=== PATIENT | male | born 1945 | race Caucasian/White ===

== ENCOUNTER → 2016-08-26 | Day surgery (SDC) | payer MEDICARE, BC ==
[2015-07-01 01:40] VITALS: BP 88/49
[~2016-08-26] MED LIST: ASPIRIN E.C. 8181 MG; CLOPIDOGREL; DECADRON 4MG TAB4 MG PO; FOLIC ACID1 MG PO; NITROGLYCERIN0.4 M1 SL; ONE-A-DAY MENO1 EACH PO; PROCHLORPERAZIN10 M2; RELION VEN0.09 MG/Ac IH; SIMVASTATIN40 M1 PO
== END ==
LOC: MSO 08:10
DX: Z12.11 Encounter for screening for malignant neoplasm of colon (principal); C34.92 Malignant neoplasm of unspecified part of left bronchus or lung; C79.9 Secondary malignant neoplasm of unspecified site; J44.9 Chronic obstructive pulmonary disease, unspecified; J45.909 Unspecified asthma, uncomplicated; Z87.891 Personal history of nicotine dependence; K62.89 Other specified diseases of anus and rectum; K57.10 Diverticulosis of small intestine without perforation or abscess without bleeding
CPT/HCPCS: 00810; J3010; J7120

== ENCOUNTER 2021-04-27 03:06 | Inpatient (IN) | payer MEDICARE, BC ==
[~2021-04-27] VITALS: Ht 172.7 cm; Wt 88.4 kg
[~2021-04-27 03:06] MED LIST changes: +ANORO ELLIPTA1 POW IH; +GOOD SENSE ASPI81 M1 PO; +ROSUVASTATIN CA40 MG PO; +XARELTO20 MG PO
--- NOTE | 2021-04-27 03:06 | NUR ---
Patient admitted via wheel chair to room 205 for Dx of CA lt lung,dyspnea, hyperkalemia and hyponatremia. (CT scan reads possible early pnuemonia RLL). Oriented to room and call light and bed alarm on. IVF's NS begun at 125mls/hr and rocephin IV given. Denies pain. Up to the bathroom and voids but unmeasured. Rests back in bed. See admission assessment.
[2021-04-27 06:05] VITALS: BP 153/100
--- NOTE | 2021-04-27 06:17 | NUR ---
Patient states "oh yes" to getting sleep tonight.
--- NOTE | 2021-04-27 07:00 | NUR ---
REPORT RECEIVED FROM SLIM SHAY. PATIENT CURRENTLY RESTING IN BED WITH EYES CLOSED. BED IN LOWEST LOCKED POSTION, CALL LIGHT WITHIN REACH.
[2021-04-27 07:24] LABS: HEMATOCRIT 50.7 % (42.0-52.0); HEMOGLOBIN 16.3 g/dL (13.5-18.0); MEAN CELL VOLUME 92 fl (78-100); MEAN CORPUSCULAR HEMOGLOBIN 29 pg (27-31); MEAN CORPUSCULAR HGB CONC 32 g/dL (33-37); MEAN PLATELET VOLUME 10.7 fl (7.4-10.4); PLATELET COUNT 232 K/mm3 (130-400); RED BLOOD COUNT 5.54 M/mm3 (4.20-5.60); RED CELL DISTRIBUTION WIDTH 14.1 % (11.5-14.5); WHITE BLOOD COUNT 7.9 K/mm3 (4.8-10.8)
[2021-04-27 07:28] LABS: ALBUMIN 4.1 g/dL (3.4-4.8)
[2021-04-27 07:29] LABS: CALCIUM 8.9 mg/dL (8.3-10.5)
[2021-04-27 07:31] LABS: TOTAL PROTEIN 7.1 g/dL (6.2-8.1)
[2021-04-27 07:32] LABS: TOTAL BILIRUBIN 0.6 mg/dL (0.2-1.2)
[2021-04-27 07:43] LABS: TROPONIN-I 0.03 ng/mL (<0.030)
[2021-04-27 07:52] LABS: LYMPHOCYTE 5 % (20-51); MONOCYTE 2 % (3-10); NEUTROPHILS 93 % (42-75)
--- NOTE | 2021-04-27 09:00 | NUR ---
NURSE IN TO ASSESS PATIENT. PATIENT CURRENTLY UP TO CHAIR, STATES "I AM FEELING BETTER THIS MORNING". PATIENT DENIES ANY NEEDS OR COMPLAINTS AT THIS TIME. CALL LIGHT WITHIN REACH.
[2021-04-27 10:13] VITALS: BP 129/56
--- NOTE | 2021-04-27 11:41 | NUR ---
spoke with Mr. Walker. 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 He does not have home health or other services. He states that he is ready to go home tomorrow. Expressed to him that the physician would assess him daily for his oxygen needs and make that determination. He gets his oxygen from [facility] in [place]. This CM and the patient do not anticipate any needs from DME or HH upon discharge standpoint
--- NOTE | 2021-04-27 13:00 | NUR ---
PATIENT REEDUCATED ON WAITING FOR STAFF TO GET TO ROOM BEFORE GETTING UP FOR SAFETY REASONS. PATIENT VERBILIZED UNDERSTANDING.
[2021-04-27 14:11] VITALS: BP 143/86
--- NOTE | 2021-04-27 15:00 | NUR ---
PATIENT FAMILY IN ROOM AND ASKE FOR PLAN REGARDING TREATMENT. PLAN DISCUSSED WITH FAMILY AND PATIENT, VERBILIZED UNDERSTANDING. PATIENT CURRENTLY UP TO CHAIR. CHAIR ALARM ON, CALL LIGHT WITHIN REACH.
[2021-04-27 18:06] VITALS: BP 141/98
--- NOTE | 2021-04-27 18:45 | NUR ---
REPORT GIVEN TO TRACIE GAO.
--- NOTE | 2021-04-27 18:49 | NUR ---
Report received from Andreas SMALLS. Patient sitting up in recliner watching TV. A/O x4. Denies pain. IVF infusing NS at 125 ML/HR. Site patent. INT intact to L wrist. States he feels SOB is "better" then 2 days ago. Denies cough except occasional. Lungs with inspiratory and expiratory wheezes throughout all french. Refuses nebulizer tx. Requesting a shower tonight. AUXILIARY POWER EQUIPMENT OPERATOR notified.
--- NOTE | 2021-04-27 19:03 | NUR ---
FRACTIONATION PLANT SUPERVISOR in to give patient a shower. IVF paused at this time.
--- NOTE | 2021-04-27 19:30 | NUR ---
ICER MACHINE reports patient refused oxygen during shower. After 10 minutes patient noted to be turning blue and ICER MACHINE placed oxygen back on at 4 L/NC.
[2021-04-27 22:16] VITALS: BP 150/91
--- NOTE | 2021-04-28 00:55 | NUR ---
Sets off bed alarm. This nurse to room to find patient sitting up on EOB near window. Bending over "I dropped something" Oxygen off. Patient face and body bluish in color. Oxygen replaced at 4L/NC and color improved. Offered nebulizer tx and patient refuses. Tucked into bed then states has to go to BR. Up to BR with SBA. LOB noted x1. Voids 500 ML of clear yellow urine and back to bed with 1 assist. Positions self for comfort. HOB elevated to help facilitate optimal breathing. Bed alarm on. Call light in reach with reminders to call for assist before exiting bed.
[2021-04-28 01:24] VITALS: BP 165/96
[2021-04-28 05:59] VITALS: BP 154/98
--- NOTE | 2021-04-28 06:14 | NUR ---
Rested on and off through the night. Denies pain. SAO2 91-93% on 4L/NC. Refusing several offers of nebulizer tx. Remains congested with occasional coughing heard.
--- NOTE | 2021-04-28 07:00 | NUR ---
Report to Polly SMALLS.
--- NOTE | 2021-04-28 09:51 | NUR ---
Stop NS gtt at this time Dr. Mark SLATER
[2021-04-28 10:01] VITALS: BP 139/82
[2021-04-28 10:32] LABS: HEMATOCRIT 47.2 % (42.0-52.0); HEMOGLOBIN 15.2 g/dL (13.5-18.0); MEAN CELL VOLUME 92 fl (78-100); MEAN CORPUSCULAR HEMOGLOBIN 30 pg (27-31); MEAN CORPUSCULAR HGB CONC 32 g/dL (33-37); MEAN PLATELET VOLUME 10.8 fl (7.4-10.4); PLATELET COUNT 237 K/mm3 (130-400); RED BLOOD COUNT 5.12 M/mm3 (4.20-5.60); RED CELL DISTRIBUTION WIDTH 14.2 % (11.5-14.5); WHITE BLOOD COUNT 16.5 K/mm3 (4.8-10.8)
[2021-04-28 10:45] LABS: POTASSIUM 5.4 mmol/L (3.5-5.1)
[2021-04-28 10:46] LABS: CALCIUM 8.7 mg/dL (8.3-10.5)
[2021-04-28 11:04] LABS: NEUTROPHILS 90 % (42-75)
[2021-04-28 11:05] LABS: LYMPHOCYTE 2 % (20-51); MONOCYTE 8 % (3-10)
[2021-04-28 13:34] VITALS: BP 153/88
[2021-04-28 18:16] VITALS: BP 121/62
--- NOTE | 2021-04-28 20:25 | NUR ---
Report received from Polly SMALLS. Patient sitting up in recliner watching TV. A/O x4. Denies pain. Oxygen in place at 2L/NC. INT patent to L wrist. Assessment completed. Lungs with Inspiratory and expiratory wheezes throughout. Using I.S. pulls 1500- 2000 x5 then amount decreases x5. Reports that he coughed up some "bloody sputum" earlier today after nebulizer tx. Scheduled nebulizer tx and medications administered. Denies wants or needs.
--- NOTE | 2021-04-28 21:35 | NUR ---
SAO2 post nebulizer tx initially 83% then up to 87% after a few minutes on 2 L/NC. Oxygen increased to 3 L at this time.
--- NOTE | 2021-04-28 21:45 | NUR ---
SAO2 94% on 3L/NC. FINANCIAL CONSULTANT in to assist to bed, patient had stated to FINANCIAL CONSULTANT that I am going to go into the BR, brush my teeth and go to the BR if you have something to do. FINANCIAL CONSULTANT advised to patient that she needed to stay in there and that he was unsteady with ambulation. Patient showed some irritation but cooperative.
[2021-04-28 22:03] VITALS: BP 116/75
[2021-04-29 02:02] VITALS: BP 133/79
--- NOTE | 2021-04-29 03:23 | NUR ---
Nurse in to give IV Rocephin. Patient noted to have nasal cannula on top of forehead. Face and skin purplish/blue in color. Cannula replaced to nares. RADIOLOGY MANAGER reports patient found this way a few times this shift. INT patent and flushed easily with NS and good blood return.
--- NOTE | 2021-04-29 05:06 | NUR ---
Alarm sounds, ARRANGING FUNERAL DIRECTOR to room. Cord pulled out of wall. Oxygen out of nares. SAO2 78%, face bluish. Nasal cannula replaced and patient instructed to take deep breaths. SAO2 up to 88-91% on 3L. ARRANGING FUNERAL DIRECTOR notes that SAO2 decreases with movement. Patient up to chair at this time. Contiue to monitor status.
--- NOTE | 2021-04-29 05:19 | NUR ---
SAO2 92-94% on 3L sitting up in recliner.
[2021-04-29 06:16] VITALS: BP 134/75
--- NOTE | 2021-04-29 06:39 | NUR ---
PACKAGE LINER in to assist with patient with cleaning up, brushing teeth etc.. Patient verbalizes frustration with PACKAGE LINER having to stay in room with him, verbalizes more then once then apologizes. Patient unsteady on feet at times and oxygen levels decrease with activity and advised this is for his safety.
--- NOTE | 2021-04-29 07:04 | NUR ---
Report to Polly SMALLS.
--- NOTE | 2021-04-29 08:53 | NUR ---
Patient resting in chair. A&Ox4, 3L O2 per NC, pleasant with staff. No c/o pain or discomfort. Eager to go home today. Compliant with treatment plan. Reports he slept well last night. Chair in locked position. Call light within reach.
[2021-04-29 09:44] VITALS: BP 120/74
[2021-04-29 13:47] VITALS: BP 157/73
--- NOTE | 2021-04-29 14:06 | NUR ---
Patient O2 at 78% upon returning from using bathroom. Oxygen was inceased to 3L NC, O2 at 92%. Patient requests to go for a walk. During walk was only able to get one reading at 68% on 3L. Patient is currently resting in recliner, on 3L NC, 91%. He denies feeling SOB beyond his baseline. He states he check 02 at home with pluse anabel, avg reading is 92-94% on RA.
[2021-04-29 17:32] VITALS: BP 162/78
--- NOTE | 2021-04-29 19:03 | NUR ---
REPORT GIVEN TO TRACIE GAO
--- NOTE | 2021-04-29 20:00 | NUR ---
Report received from Rose SMALLS. Patient resting in bed with oxygen in place at 3L/NC. A/O x3. Denies pain. Scheduled nebulizer tx administered via mask. Patient reports he is "going home tomorrow, one way or another". INT patent to Zander swift. Bed alarm on. Call light in reach.
[2021-04-29 22:00] VITALS: BP 162/80
--- NOTE | 2021-04-30 00:19 | NUR ---
Patient observed by staff with his oxygen off. Face blue. Oxygen replaced at the 3 L/NC.
[2021-04-30 01:46] VITALS: BP 156/88
[2021-04-30 06:02] VITALS: BP 169/98
--- NOTE | 2021-04-30 07:16 | NUR ---
Report to Ana SMALLS.
[2021-04-30 09:36] VITALS: BP 148/81
[2021-04-30 11:46] LABS: HEMATOCRIT 50.1 % (42.0-52.0); HEMOGLOBIN 15.9 g/dL (13.5-18.0); LYMPH# 0.76 K/mm3 (1.50-4.00); MEAN CELL VOLUME 92 fl (78-100); MEAN CORPUSCULAR HEMOGLOBIN 29 pg (27-31); MEAN CORPUSCULAR HGB CONC 32 g/dL (33-37); MEAN PLATELET VOLUME 10.6 fl (7.4-10.4); MONO # 1.12 K/mm3 (0.20-0.80); NEU # 14.27 K/mm3 (1.40-6.50); PLATELET COUNT 232 K/mm3 (130-400); RED BLOOD COUNT 5.44 M/mm3 (4.20-5.60); RED CELL DISTRIBUTION WIDTH 14.3 % (11.5-14.5); WHITE BLOOD COUNT 16.2 K/mm3 (4.8-10.8)
[2021-04-30 11:56] LABS: POTASSIUM 4.9 mmol/L (3.5-5.1)
[2021-04-30 11:58] LABS: CALCIUM 9.1 mg/dL (8.3-10.5)
--- NOTE | 2021-04-30 13:15 | NUR ---
Report received from Ana at 1215. Pt eating lunch. Denied discomfort when asked. Oxygen at 3 L/min. n/c. Resp. unlabored while seated, resting at 24/min. color fair, sl. flushed. Pt reports frequent cough and occasionally produces phlegm. No cough at this time. Pt understands he is to be discharged today. Asked about home oxygen use, he has small cylinders of oxygen that were brought to him for home use as portable use. When asked, he said [facility] is also to follow up with him with options for small portable concentrator to use in place of these cylinders. He understands he needs oxygen continuously. Asked patient about follow up appointment with PCP, Dr. Epps; pt wants me to check with his when she arrives to hospital--he believes she is to arrive within next 20 min.
[2021-04-30 13:36] VITALS: BP 148/78
[2021-04-30] MEDS ORDERED: PREDNISONE20 M1 PO (14:11)
--- NOTE | 2021-04-30 14:41 | NUR ---
Pt understands discharge instructions to include need for continuous oxygen during the day, rather than only at night/bedtime. His has arrived and also aware and understands these & other instructions provided in written discharge instruction packet (from ANTIQUE CLOCK REPAIRER). Discharge planning nurse has arranged the small oxygen cylinders (for portable use) with home medical supply company of patient's choice ([employer]), which he had been using for home oxygen previously. Pt discharged to home with his . Taken via w/chair to private car (driven by his ) with all belongings and portable oxygen at 3 L/min.
== END 2021-04-30 14:27 | disposition home or self-care (01) | DRG 194 ==
LOC: MED/SURG 03:06
PROVIDERS: Family Medicine; Nurse Practitioner; ADMIT Family Medicine
DX: J18.9 Pneumonia, unspecified organism (principal); E87.1 Hypo-osmolality and hyponatremia; J98.11 Atelectasis; J90 Pleural effusion, not elsewhere classified; I25.10 Atherosclerotic heart disease of native coronary artery without angina pectoris; E78.5 Hyperlipidemia, unspecified; I10 Essential (primary) hypertension; E66.9 Obesity, unspecified; E87.5 Hyperkalemia; Z79.82 Long term (current) use of aspirin; Z95.5 Presence of coronary angioplasty implant and graft; Z85.118 Personal history of other malignant neoplasm of bronchus and lung; Z86.711 Personal history of pulmonary embolism
CPT/HCPCS: J0696; J2930; J7030; J7512

== ENCOUNTER 2024-05-03 09:25 | Emergency (ER) | payer MEDICARE, BC ==
[~2024-05-03 09:25] MED LIST changes: +PREDNISONE20 M1 PO
[2024-05-03] MEDS ORDERED: Rocuronium 50 MG/5 ML Multi-Dose VIAL IV SCH (09:44)
[2024-05-03 10:13] LABS: HEMOGLOBIN 15.4 g/dL (13.5-18.0); MEAN CELL VOLUME 96 fl (78-100); MEAN CORPUSCULAR HEMOGLOBIN 31 pg (27-31); MEAN CORPUSCULAR HGB CONC 32 g/dL (33-37); MEAN PLATELET VOLUME 11.9 fl (7.4-10.4); PLATELET COUNT 268 K/mm3 (130-400); RED BLOOD COUNT 5.01 M/mm3 (4.20-5.60); RED CELL DISTRIBUTION WIDTH 13.7 % (11.5-14.5)
[2024-05-03] MEDS ORDERED: Furosemide 40 MG/4 ML VIAL IV ONE (10:15)
[2024-05-03] MEDS ORDERED: cefTRIAXone 1 G in Water For Injection,Sterile 10 ML IV SCH (10:15)
[2024-05-03 10:16] LABS: ALBUMIN 4.3 g/dL (3.4-4.8)
[2024-05-03 10:17] LABS: CALCIUM 9.6 mg/dL (8.3-10.5)
[2024-05-03 10:19] LABS: TOTAL PROTEIN 7.5 g/dL (6.2-8.1)
[2024-05-03 10:22] LABS: TOTAL BILIRUBIN 0.5 mg/dL (0.2-1.2)
[2024-05-03 10:32] LABS: TROPONIN-I 0.03 ng/mL (0.00-0.033)
[2024-05-03 10:41] LABS: BAND 8 % (0-10); LYMPHOCYTE 9 % (20-51); MONOCYTE 9 % (3-10); NEUTROPHILS 74 % (42-75)
[2024-05-03 10:53] VITALS: BP 130/77
[2024-05-03 11:08] LABS: PH-URINE 5.5 (5.0 - 8.0); URINE APPEARANCE SLIGHTLY CLOUDY (CLEAR); URINE BILIRUBIN NEGATIVE (NEGATIVE); URINE BLOOD 2+ (NEGATIVE); URINE COLOR YELLOW (YELLOW); URINE GLUCOSE NEGATIVE (NEGATIVE); URINE KETONE NEGATIVE (NEGATIVE); URINE LEUKOCYTE ESTERASE NEGATIVE (NEGATIVE); URINE NITRATE NEGATIVE (NEGATIVE); URINE PROTEIN(semi-quant) 3+ (NEGATIVE)
== END 2024-05-03 10:50 | disposition short-term general hospital (02) ==
LOC: ED 09:25
PROVIDERS: Nurse Practitioner Family
DX: J96.00 Acute respiratory failure, unspecified whether with hypoxia or hypercapnia (principal); U07.1 COVID-19; C34.90 Malignant neoplasm of unspecified part of unspecified bronchus or lung
CPT/HCPCS: J0696; J1940